=== PATIENT | female | born 1965 | race Caucasian/White ===

== ENCOUNTER 2018-03-09 11:11 | Observation (INO) | payer OTHER ==
[~2018-03-09] VITALS: Ht 149.9 cm; Wt 77.1 kg
[~2018-03-09 11:11] MED LIST: ADDERALL; ASPIRIN81 MG PO; HCTZ; LAMICTAL; LEXAPRO10 MG PO; LISINOPRIL10 MG PO; LOPRESSOR25 MG PO; METFORMIN HCL850 MG PO; MIRAPEX; MIRAPEX0.25 MG PO; PRILOSEC10 MG PO; TAMIFLU75 MG PO; TEGRETOL; TRAZADONE
[2018-03-09] MEDS ORDERED: NITROGLYCERIN 2% OINT 1 GM PKT TOP ONE (11:45)
[2018-03-09 11:58] LABS: BASOPHILS # (AUTO) 0.1 (0.0-0.1); BASOPHILS % 0.7 % (0.0-1.0); EOSINOPHILS # (AUTO) 0.2 (0.0-0.4); EOSINOPHILS % 2.1 % (0.0-6.0); HEMATOCRIT 35.2 % (34.2-44.1); HEMOGLOBIN 10.5 g/dL (12.0-16.0); LYMPHOCYTES # (AUTO) 2.7 (1.0-3.2); MEAN CORPUSCULAR HEMOGLOBIN 22.1 pg (28-32); MEAN CORPUSCULAR HGB CONC 29.8 g/dL (31-35); MEAN CORPUSCULAR VOLUME 74.1 fL (81-99); MONOCYTES # (AUTO) 0.7 (0.2-0.8); MONOCYTES % 6.2 % (4.4-11.3); NEUTROPHILS % 65.4 % (38.7-80.0); PLATELET COUNT 369 x10e3/uL (140-360); RED BLOOD COUNT 4.75 x10e6/uL (3.6-5.1); RED CELL DISTRIBUTION WIDTH 18.8 % (11.7-14.4)
[2018-03-09 12:02] LABS: INR 1.06
[2018-03-09 12:03] LABS: PARTIAL THROMBOPLASTIN TIME 25.4 seconds (23.8-35.5)
[2018-03-09 12:10] LABS: ALANINE AMINOTRANSFERASE 22 IU/L (0-55); ALBUMIN 3.4 g/dL (3.5-5.0); ALBUMIN/GLOBULIN RATIO 0.9 (0.8-2.0); ALKALINE PHOSPHATASE 112 IU/L (40-150); ANION GAP 14.1 mmol/L (8-16); BLOOD UREA NITROGEN 11 mg/dL (7-26); BUN/CREATININE RATIO 12 (6-25); CALCIUM 9.6 mg/dL (8.4-10.2); CARBON DIOXIDE 28 mmol/L (22-29); CHLORIDE 104 mmol/L (98-107); CREATINE KINASE 107 IU/L (29-168); EST GLOMERULAR FILTRATION RATE > 60 ML/MIN (60-); GLUCOSE 118 mg/dL (74-118); POTASSIUM 4.1 mmol/L (3.5-5.1); SODIUM 142 mmol/L (136-145)
--- NOTE | 2018-03-09 12:43 | Diagnostic Imaging Report ---
PROCEDURE: CHEST SINGLE (PORTABLE) COMPARISON: [facility], DX, CHEST 2 VIEWS, 03/27/2017, 11:32. INDICATIONS: CHEST PAIN FINDINGS: LUNGS: No consolidations or edema. PLEURA: No effusions or pneumothorax. HEART \T\ MEDIASTINUM: The heart is within normal size-limits. BONES \T\ SOFT TISSUES: No acute findings. CONCLUSION: No acute thoracic abnormality. Nick Davis D.O. Dictated by: Nick Davis D.O. on 03/09/2018 at 12:47 Electronically approved by: Nick Davis D.O. on 03/09/2018 at 12:47
[2018-03-09] MEDS ORDERED: ONDANSETRON HCL INJ 2 MG/ML VIAL IV PRN (13:15)
[2018-03-09] MEDS ORDERED: NITROGLYCERIN 0.4 MG SUBL SL PRN (13:15)
[2018-03-09] MEDS ORDERED: SODIUM CHLORIDE FLUSH 10 ML SYR INJ PRN (13:15)
[2018-03-09] MEDS ORDERED: MORPHINE SULFATE 2 MG/ML SYR IV PRN (13:15)
[2018-03-09] MEDS ORDERED: METOPROLOL TARTRATE 25 MG TAB PO SCH (14:00)
[2018-03-09] MEDS: FAMOTIDINE 20 MG TAB PO SCH ×2 (15:15→20:40)
[2018-03-09] MEDS: ACETAMINOPHEN 325 MG TAB PO PRN (15:36)
[2018-03-09 15:51] VITALS: BP 104/57
[2018-03-09 16:26] VITALS: BP 104/57
[2018-03-09] MEDS ORDERED: MIRAPEX0.25 MG PO (16:26)
[2018-03-09] MEDS ORDERED: PROAIR HFA INH8.5 GM (16:26)
[2018-03-09] MEDS ORDERED: HORIZANT600 MG PO (16:26)
[2018-03-09] MEDS ORDERED: LOSARTAN POTAS100 MG PO (16:26)
[2018-03-09] MEDS ORDERED: ALBUTEROL SULFATE HFA 8GM INHALATION AEROSOL INH PRN (17:45)
[2018-03-09] MEDS ORDERED: NITROGLYCERIN 2% OINT 1 GM PKT TOP SCH (18:00)
[2018-03-09 20:00] VITALS: BP 109/52
--- NOTE | 2018-03-09 20:06 | Consultation ---
DATE OF CONSULTATION: March 09, 2018 CARDIAC CONSULTATION REASON FOR CONSULTATION: Chest pain. HISTORY: A 52-year-old lady, hypertensive, diabetic and hypertriglyceridemic with positive family history of coronary artery disease. She does have also sleep apnea and GERD symptoms. Patient went to see her GI doctor and she complained of chest pain, retrosternal, not feeling well. He was advised to come to the emergency room, seen in ER and admitted for further management. Cardiac consultation is obtained. Her chest pain can happen at any time, during rest, at night or with activity. She does have weakness and her stamina is definitely decreasing. She is unable to do much of activity she used to do before because of her symptoms. She does have shortness of breath on exertion, class III. There is no orthopnea. No paroxysmal nocturnal dyspnea. No syncope or presyncope. CURRENT MEDICATIONS: Gabapentin 300 mg nightly, losartan 100 mg a day, aspirin 81 mg daily, Prilosec 40 mg daily, Premarin. ALLERGIES: CECLOR, SULFA AND TETRACYCLINE. PAST MEDICAL HISTORY: 1. Hypertension. 2. Diabetes mellitus. 3. Sleep apnea. 4. Metabolic syndrome. 5. Migraine headaches. 6. History of trigeminal neuralgia. 7. Restless syndrome. 8. Palpitations. 9. Absence seizure. 10. Tonsillectomy. 11. Endometriosis. 12. . 13. Breast surgery. FAMILY HISTORY: Mother in her 70s. She is known with heart disease. Father with complication of diabetes mellitus. One healthy sister and two sons. SOCIAL HISTORY: She is . She is nonsmoker. She is rarely heavy drinker of alcohol. She is a full-time school district employee. REVIEW OF SYSTEMS: GENERAL: No fever. No chills. HEENT: Remarkable for headache. Blurring visions at times. PULMONARY: Wheezes and moderate shortness of breath on exertion. CARDIAC: As per acute illness. GI: Bloating, indigestion and heartburn. MUSCULOSKELETAL: Back pain and knee pain. LOWER EXTREMITIES: Occasional swelling of the lower extremities. MUSCULOSKELETAL: Aches and pains. NEUROLOGIC: Restless leg syndrome. PHYSICAL EXAMINATION VITALS: Height is 5 feet. Weight of 220 pounds. Blood pressure 100/50. Heart rate of 60. Respiratory rate of 18. HEENT: Pupils are equal and reactive. NECK: No elevation of jugular venous pulsation. CHEST: Clear to auscultation and percussion. HEART: PMI in the left 5th left intercostal space. Normal 1st and 2nd heart sounds. ABDOMEN: Soft with good bowel sounds. EXTREMITIES: No cyanosis, no clubbing, no edema. IMPRESSION 1. Chest pain with typical and atypical characteristic. 2. Hypertension. 3. Diabetes mellitus. 4. Obstructive lung disease. 5. Gastroesophageal reflux disease. 6. Aches and pains. 7. Overweight. Of note, the patient had a cardiac catheterization which showed minimal coronary artery disease. RECOMMENDATIONS: Cardiac-anderson, my recommendation, observation, will schedule the patient for regular stress test in the morning. Will assure lab ordered. Will follow the patient's progression with you. Job#: [id number]
[2018-03-09 20:07] LABS: CREATINE KINASE 87 IU/L (29-168)
[2018-03-09] MEDS ORDERED: PANTOPRAZOLE SOD 40 MG TABEC PO SCH (21:00)
[2018-03-09] MEDS ORDERED: LOSARTAN POTASSIUM 100 MG TAB PO SCH (21:00)
[2018-03-09] MEDS ORDERED: GABAPENTIN 300 MG CAP PO SCH (21:00)
[2018-03-09] MEDS ORDERED: PRAMIPEXOLE DIHYDROCHLORIDE 1 MG TAB PO SCH (21:00)
[2018-03-10] VITALS: BP 98/54
[2018-03-10] MEDS: ACETAMINOPHEN 325 MG TAB PO PRN ×2 (00:06→08:10)
[2018-03-10 03:24] LABS: CREATINE KINASE 89 IU/L (29-168)
[2018-03-10 04:00] VITALS: BP 111/55
[2018-03-10 04:51] LABS: BASOPHILS # (AUTO) 0.1 (0.0-0.1); EOSINOPHILS # (AUTO) 0.3 (0.0-0.4); EOSINOPHILS % 3.5 % (0.0-6.0); HEMATOCRIT 32.9 % (34.2-44.1); HEMOGLOBIN 9.7 g/dL (12.0-16.0); LYMPHOCYTES # (AUTO) 3.1 (1.0-3.2); LYMPHOCYTES % 33.4 % (18.0-39.1); MEAN CORPUSCULAR HGB CONC 29.5 g/dL (31-35); MEAN CORPUSCULAR VOLUME 74.8 fL (81-99); MONOCYTES # (AUTO) 0.6 (0.2-0.8); MONOCYTES % 6.1 % (4.4-11.3); NEUTROPHILS # (AUTO) 5.2 (2.1-6.9); NEUTROPHILS % 55.7 % (38.7-80.0); PLATELET COUNT 313 x10e3/uL (140-360); RED CELL DISTRIBUTION WIDTH 18.8 % (11.7-14.4)
[2018-03-10 05:09] LABS: ALBUMIN 2.9 g/dL (3.5-5.0); ALBUMIN/GLOBULIN RATIO 0.9 (0.8-2.0); ANION GAP 12.6 mmol/L (8-16); CREATININE, SERUM 1.02 mg/dL (0.57-1.11); POTASSIUM 4.6 mmol/L (3.5-5.1)
[2018-03-10 05:24] LABS: CHOL/HDL RATIO 3.2 (3.0-3.6)
[2018-03-10 05:31] LABS: THYROID STIMULATING HORMONE 1.941 uIU/mL (0.350-4.940)
[2018-03-10 08:06] VITALS: BP 120/70
[2018-03-10] MEDS: FAMOTIDINE 20 MG TAB PO SCH (08:40)
[2018-03-10] MEDS ORDERED: ASPIRIN 81 MG ENTERIC COATED PO SCH (09:00)
[2018-03-10 11:40] VITALS: BP 115/55
--- NOTE | 2018-03-10 12:35 | Cardiology Report ---
DATE OF STUDY: March 10, 2018 EXERCISE TREADMILL STRESS TEST INDICATION FOR STUDY: Chest pain. TECHNICAL DETAILS: After risks, benefits, pros and cons of exercise stress test were explained, patient agreed to proceed. Patient was brought then to the stress lab where 12-lead EKG monitoring and blood pressure monitoring were obtained. She exercised on a Damon protocol going for a total duration of 6 minutes and 41 seconds, terminating into stage 3 of protocol. Underlying heart rate went from a baseline of 77 to a maximum of 146 beats per minute, above our target heart rate of 143 beats per minute. Blood pressure went from a baseline of 140/75 to a maximum of 180/70. Underlying EKG reveals normal sinus rhythm, normal axis, and no ST-T wave changes and with exercise treadmill stress test, there were no ischemic EKG changes or symptoms. The protocol was terminated due to patient's fatigue. CONCLUSIONS 1. Overall negative exercise treadmill stress test. 2. Finding of the study explained to the patient including limitations. Job#: [id number] VAS
[2018-03-16] MEDS ORDERED: NORTRIPTYLINE H10 MG (13:45)
== END 2018-03-10 12:38 | disposition home or self-care (01) ==
LOC: ER 11:12 → ERHOLD 13:21 → IMCU 15:37
DX: R07.2 Precordial pain (principal); I10 Essential (primary) hypertension; E66.01 Morbid (severe) obesity due to excess calories; E11.9 Type 2 diabetes mellitus without complications; K21.9 Gastro-esophageal reflux disease without esophagitis; J44.9 Chronic obstructive pulmonary disease, unspecified; Z68.34 Body mass index [BMI] 34.0-34.9, adult; G47.33 Obstructive sleep apnea (adult) (pediatric)
CPT/HCPCS: 36415 ×2; 71045; 80053 ×2; 80061; 82270; 82550 ×2; 82553 ×2; 82948; 83880; 84443; 84484 ×2; 85025 ×2; 85610; 85730; 93005; 93017; 99284; G0378 ×2; J2270; J2405; S0164

== ENCOUNTER → 2018-03-20 | Day surgery (SDC) | payer OTHER ==
[~2018-03-20] MED LIST changes: +FENTANYL CITRATE/PF 100MCG/2 ML INJ ONE; +HORIZANT600 MG PO; +HYOSCYAMINE SULFATE 0.5 MG/ML AMP ONE; +LOSARTAN POTAS100 MG PO; +MIDAZOLAM HCL 2 MG/2 ML VIAL ONE; +NORTRIPTYLINE H10 MG; +PROAIR HFA INH8.5 GM; +PROPOFOL IV EMULSION 10 MG/ML 50 ML VIAL ONE
[2018-03-20 17:33] LABS: WBC,FECAL (FECAL LACTOFERRIN) NEGATIVE (NEGATIVE)
--- NOTE | 2018-03-20 18:00 | Operative Report ---
DATE OF PROCEDURE: March 20, 2018 REFERRING PHYSICIAN: Dr. Thierry Root PROCEDURE PERFORMED: EGD with biopsies and colonoscopy with polypectomy and biopsies. INDICATIONS FOR EGD: Dysphagia. INDICATIONS FOR COLONOSCOPY: Colorectal cancer screening. Family history of colon cancer. Chronic diarrhea. MEDICATION: Patient was done under MAC. Please see anesthesiologist's note. PROCEDURE: Patient in lateral decubitus position, flexible fiberoptic Olympus gastroscope was introduced into the esophagus under direct visualization without any difficulty. There was some patchy erythema noted in distal esophagus and the esophagus was then dilated to size 52-Wolof Cobos. The scope was then advanced with ease into the stomach traversing a small sliding hiatal hernia. Mucosa overlying the antrum and the body revealed some patchy erythema and [id number] edema and biopsies were obtained and sent to stain for H. pylori. There was some plastic-appearing polyps noted in the body of the stomach and some were partially excised with cold biopsy forceps. The pylorus was of normal contour and shape. It was intubated with ease and the scope was advanced all the way to the 2nd portion of the duodenum. Duodenal folds appeared somewhat scalloped and biopsies were obtained to rule out sprue. The mucosa overlying the duodenal bulb appeared to be within normal limits. The scope was then withdrawn back into the stomach and retroflexed and the mucosa overlying the fundus and the cardia appeared to be within normal limits. The scope was then straightened out. The stomach was decompressed. The scope was subsequently withdrawn. Patient tolerated the procedure well. IMPRESSIONS 1. Mild distal esophagitis. 2. Esophagus dilated to size 52-Wolof Cobos. 3. Small sliding hiatal hernia. 4. Gastritis biopsied. Biopsies sent to stain for Helicobacter pylori. 5. Gastric polyps, some partially excised with the cold biopsy forceps. 6. Rule out sprue. PLAN 1. Follow up histology. 2. Initiate Protonix 40 mg 1 p.o. q.a.m a.c. Patient was then turned around and after adequate lubrication of the anal canal, a flexible fiberoptic Olympus colonoscope was inserted into the rectum with ease and advanced all the way to the cecum. Mucosa overlying the cecum appeared to be within normal limits. The ileocecal valve was intubated and the scope was advanced into the terminal ileum. Biopsies were obtained. The scope was then withdrawn back into the colon. It was then withdrawn slowly. Mucosa overlying the ascending, transverse, descending, and sigmoid and rectum revealed some patchy mild inflammatory changes and multiple random biopsies were obtained. One polyp was hot biopsied from the descending colon. One polyp was hot biopsied from the sigmoid colon. The scope was then retroflexed into the distal rectum and small internal hemorrhoids were noted, none of which was actively bleeding. The scope was then straightened out. It was subsequently withdrawn after securing an adequate stool specimen that was sent for the appropriate stool studies. Patient tolerated the procedure well. IMPRESSIONS 1. Colitis, mild, patchy, random biopsies obtained. 2. Descending colon polyp, hot biopsied. 3. Sigmoid colon polyp, hot biopsied. 4. Proctitis, mild, biopsies obtained. 5. Internal hemorrhoids, none actively bleeding. PLAN 1. Follow up histology. 2. Follow up stool studies. 3. Initiate VSL 1 p.o. daily. 4. Bentyl 10 mg 1 p.o. t.i.d. 5. Patient will need a followup colonoscopy in 3 years. Job#: [id number] CQ cc:BREE ROOT DO
[2018-03-21 14:02] LABS: C DIFFICILE TOXIN A&B AMP PROB NEGATIVE (NEGATIVE)
== END | disposition home or self-care (01) ==
LOC: ENDO 12:07
PROVIDERS: ATTEND Internal Medicine Gastroenterology
DX: K52.9 Noninfective gastroenteritis and colitis, unspecified (principal); K31.7 Polyp of stomach and duodenum; K63.5 Polyp of colon; K29.50 Unspecified chronic gastritis without bleeding; K20.9 Esophagitis, unspecified; K44.9 Diaphragmatic hernia without obstruction or gangrene; K62.89 Other specified diseases of anus and rectum; K64.8 Other hemorrhoids; D64.9 Anemia, unspecified; R00.2 Palpitations; I10 Essential (primary) hypertension; E11.9 Type 2 diabetes mellitus without complications; J45.909 Unspecified asthma, uncomplicated; G25.81 Restless legs syndrome; G62.9 Polyneuropathy, unspecified; G47.33 Obstructive sleep apnea (adult) (pediatric); Z88.1 Allergy status to other antibiotic agents; Z88.2 Allergy status to sulfonamides; Z68.41 Body mass index [BMI] 40.0-44.9, adult; Z80.0 Family history of malignant neoplasm of digestive organs
CPT/HCPCS: 36415; 43239; 43450; 45380; 45384; 82948; 83630; 83993; 87045; 87177; 87328; 87493; J1980; J2250; 45378; 45385

== ENCOUNTER → 2018-07-10 | Day surgery (SDC) | payer OTHER ==
[2018-07-07 11:34] LABS: BASOPHILS # (AUTO) 0.1 (0.0-0.1); BASOPHILS % 0.6 % (0.0-1.0); EOSINOPHILS # (AUTO) 0.2 (0.0-0.4); EOSINOPHILS % 1.4 % (0.0-6.0); HEMATOCRIT 37.4 % (34.2-44.1); LYMPHOCYTES # (AUTO) 4.5 (1.0-3.2); LYMPHOCYTES % 28.9 % (18.0-39.1); MEAN CORPUSCULAR HEMOGLOBIN 22.4 pg (28-32); MEAN CORPUSCULAR HGB CONC 29.4 g/dL (31-35); MONOCYTES # (AUTO) 1.1 (0.2-0.8); MONOCYTES % 7.3 % (4.4-11.3); NEUTROPHILS # (AUTO) 9.5 (2.1-6.9); NEUTROPHILS % 61.2 % (38.7-80.0); PLATELET COUNT 398 x10e3/uL (140-360); RED BLOOD COUNT 4.92 x10e6/uL (3.6-5.1)
--- NOTE | 2018-07-07 11:45 | Diagnostic Imaging Report ---
EXAMINATION: PA and lateral views of the chest. COMPARISON: Portable chest 04/30/2016 CLINICAL HISTORY: Left foot pain DISCUSSION: Lines/tubes: None. Lungs: The lungs are well inflated and clear. There is no evidence of pneumonia or pulmonary edema. Pleura: There is no pleural effusion or pneumothorax. Heart and mediastinum: Borderline enlarged cardiac silhouette. Pulmonary vasculature is normal. Bones and soft tissues: No acute bony abnormalities. IMPRESSION: Borderline enlarged cardiac silhouette, without acute cardiopulmonary abnormalities. Signed by: Dr. Ryan Gambino M.D. on 07/07/2018 11:42 AM
[2018-07-07 11:50] LABS: ANION GAP 13.9 mmol/L (8-16); BLOOD UREA NITROGEN 17 mg/dL (7-26); BUN/CREATININE RATIO 22 (6-25); CALCIUM 8.8 mg/dL (8.4-10.2); CARBON DIOXIDE 29 mmol/L (22-29); CHLORIDE 100 mmol/L (98-107); CREATININE, SERUM 0.78 mg/dL (0.57-1.11); EST GLOMERULAR FILTRATION RATE > 60 ML/MIN (60-); GLUCOSE 82 mg/dL (74-118); POTASSIUM 3.9 mmol/L (3.5-5.1); SODIUM 139 mmol/L (136-145)
[~2018-07-10] MED LIST changes: +ACETAMINOPHEN 1000 MG/100 ML IV ONE; +AMOVIG INJ; +BUPIVACAINE HCL 0.5% INJ 30 ML VIAL INJ ONE; +CLINDAMYCIN PHOS 900MG/ 50ML 50 ML IV ONE; +CYMBALTA30 MG PO; +DEXAMETHASONE SOD PHOS INJ 4 MG/ML VIAL ONE; +GABAPENTIN300 MG PO; +GLYCOPYRROLATE INJ 1MG/ 5 ML SYR ONE; -HYOSCYAMINE SULFATE 0.5 MG/ML AMP ONE; +LIDOCAINE HCL 2% LOCAL INJ 5 ML SDV VIAL INJ ONE; +MORPHINE SULFATE 2 MG/ML SYR ONE; +MUPIROCIN 2% OINT 22 GM TUBE ONE; +NEOSTIGMINE 5 MG/5ML SYR ONE; +ONDANSETRON HCL INJ 2 MG/ML VIAL ONE; +PROPOFOL IV EMULSION 10 MG/ML 20 ML VIAL ONE; -PROPOFOL IV EMULSION 10 MG/ML 50 ML VIAL ONE; +ROCURONIUM BROMIDE 10 MG/ML 5ML VIAL ONE; +SEVOFLURANE INHAL SOLN 250 ML PEN BTL ONE; +STEROID PO; +[UNRECOGNIZED DRUG - OTHER] INJ
[2018-07-10 10:44] LABS: BASOPHILS # (AUTO) 0.1 (0.0-0.1); BASOPHILS % 0.6 % (0.0-1.0); EOSINOPHILS # (AUTO) 0.3 (0.0-0.4); EOSINOPHILS % 2.6 % (0.0-6.0); HEMATOCRIT 37.8 % (34.2-44.1); LYMPHOCYTES % 26.4 % (18.0-39.1); MEAN CORPUSCULAR HEMOGLOBIN 22.3 pg (28-32); MEAN CORPUSCULAR HGB CONC 29.1 g/dL (31-35); MEAN CORPUSCULAR VOLUME 76.7 fL (81-99); MONOCYTES # (AUTO) 0.7 (0.2-0.8); MONOCYTES % 5.9 % (4.4-11.3); NEUTROPHILS # (AUTO) 7.3 (2.1-6.9); NEUTROPHILS % 64.1 % (38.7-80.0); PLATELET COUNT 356 x10e3/uL (140-360); RED BLOOD COUNT 4.93 x10e6/uL (3.6-5.1); RED CELL DISTRIBUTION WIDTH 18.3 % (11.7-14.4)
[2018-07-10 14:42] VITALS: BP 136/67
--- NOTE | 2018-07-13 20:15 | Operative Report ---
DATE OF PROCEDURE: July 10, 2018 PREOPERATIVE DIAGNOSES 1. Retrocalcaneal exostosis, left foot. 2. Partially ruptured Achilles tendon, left foot. 3. Contracted gastrocnemius soleus complex, left foot. POSTOPERATIVE DIAGNOSES: 1. Retrocalcaneal exostosis, left foot. 2. Partially ruptured Achilles tendon, left foot. 3. Contracted gastrocnemius soleus complex, left foot. TITLE OF OPERATION: 1. Retrocalcaneal exostectomy, left foot. 2. Repair of ruptured Achilles tendon, left foot. 3. Gastrocnemius lengthening recession, left foot. 4. ANESTHESIA: General endotracheal. HEMOSTASIS: Is a left thigh tourniquet 350 mmHg. PROCEDURE IN DETAIL: The patient was taken to the operating room in a mildly sedated state and placed upon the operating table in supine position. Following induction of general anesthetic, the procedure was performed starting with #1 retrocalcaneal exostectomy. A curvilinear incision made across the posterior aspect of the left heel. This allowed for deliverance of the Achilles attachment to the posterior aspect of the calcaneus into the surgical site. The Achilles was detached and reflected from its insertion at the posterior aspect of the calcaneus. All thickened and hypertrophic tenosynovitis and partial ruptured area was resected from the Achilles insertion. The posterior aspect of the gastroc was noted to have a very large posterior heel spur. Utilizing an osteotome and mallet, this spur was resected. The area was then irrigated with copious amounts of sterile saline solution. The tendon itself was visualized and noted that it would reattach to the Achilles with a slight advancement to the posterior aspect of the heel bone but more dorsally located. A 5.0 suture anchor was then installed into the bone itself with 2-0 FiberWire attached. The tendon was noted to be contracted significantly and although we were able to reapproximate the tendon to the posterior aspect of the heel at a more advanced position, there was still quite a contracture of gastrocnemius soleus complex. So after the suturing of the tendon to the bone, deep closure with 3-0 Vicryl and subcutaneous closure with 4-0 Vicryl and skin closure 4-0 nylon. Attention was then directed to the gastrocnemius soleus complex slightly higher in the leg. A linear incision was made overlying the gastrocnemius soleus complex. Transverse Wiliam procedure was performed to elongate the Achilles at that level and facilitate the repair. This having been accomplished and a rectus foot type being noted, the area was irrigated and closed with 3-0 Vicryl and 4-0 nylon. Human tissue allograft was used in a sheet over the tendon repair and the appropriate mildly compressive dressings were applied. Released the pneumatic thigh tourniquet and showed a normal hyperemic flush to all digits of the left foot and patient left the operating room with vital signs stable and in apparent satisfactory condition, having tolerated both the anesthetic and the procedure very well. Job#: [id number]
== END | disposition home or self-care (01) ==
LOC: OR 09:11
PROVIDERS: ATTEND Podiatrist Foot Surgery
DX: M77.32 Calcaneal spur, left foot (principal); M77.52 Other enthesopathy of left foot and ankle; S86.012A Strain of left Achilles tendon, initial encounter; M24.575 Contracture, left foot; I10 Essential (primary) hypertension; E11.9 Type 2 diabetes mellitus without complications; G47.33 Obstructive sleep apnea (adult) (pediatric); G50.0 Trigeminal neuralgia; K21.9 Gastro-esophageal reflux disease without esophagitis; F32.9 Major depressive disorder, single episode, unspecified; X58.XXXA Exposure to other specified factors, initial encounter; Z88.1 Allergy status to other antibiotic agents; Z88.2 Allergy status to sulfonamides; Z01.810 Encounter for preprocedural cardiovascular examination; Z01.812 Encounter for preprocedural laboratory examination; Z01.818 Encounter for other preprocedural examination
CPT/HCPCS: 27650; 27687; 28118; 36415 ×2; 71046; 80048; 85025 ×2; 93005; J0131; J1100; J2001; J2250; J2270; J2405; J2704; J3490; 76001